=== PATIENT | female | born 1940 | race Two or more races ===

== ENCOUNTER 2024-10-31 21:02 | Inpatient (IN) | payer OTHER ==
[~2024-10-31] VITALS: Ht 160 cm; Wt 49.0 kg
--- NOTE | 2024-10-31 21:26 | ED.PDOC ---
HPI Comments 84-year-old female who came to ER for chest pains. Patient does have history of hypertension but is not taking any medications for it. States for the past 2 days she has been left-sided chest pains, throbbing, radiating to her back, associated with dizziness, weakness, and difficulty sleeping. Noted also that her blood pressure was elevated, SBP >200 at home. Denies any shortness of breath, nausea or vomiting. Upon arrival to the ER blood pressure was 215/98 mm Hg Chief Complaint: Chest Pain Time Seen by MD: 21:26 Reviewed Notes: Nurses Notes Allergies: Coded Allergies: NO KNOWN ALLERGIES (Unverified , 10/31/24) Information Source: Patient Mode of Arrival: Ambulatory Severity: Moderate Timing: Days Duration: Intermittent Prehospital treatment: None Location: Chest (L) Radiation: Back Quality: Other (Throbbing) Onset: With Light Exertion Cardiac Risk Factors: HTN PE Risk Factors: None History of: None Modifying Factors: Nothing Associated Signs and Symptoms: Back Pain Past Medical History PAST MEDICAL HISTORY: HTN Surgical History: Denies all surgeries 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 Family History Family History: Reviewed,noncontributory to illness Social History Smoker: Non-Smoker Alcohol: Denies ETOH Use Drugs: Denies Drug Use Lives In: Home Constitutional: reports: fatigue, weakness; denies: chills, diaphoresis, fever, malaise, sweats, others EENTM: denies: blurred vision, double vision, ear bleeding, ear discharge, ear drainage, ear pain, ear ringing, eye pain, eye redness, hearing loss, mouth pain, mouth swelling, nasal discharge, nose bleeding, nose congestion, nose pain, photophobia, tearing, throat pain, throat swelling, voice changes, others Respiratory: denies: cough, hemoptysis, orthopnea, SOB at rest, shortness of breath, SOB with excertion, stridor, wheezing, others Cardiovascular: reports: chest pain, dizzy spells; denies: diaphoresis, Dyspnea on exertion, edema, irregular heart beat, left arm pain, lightheadedness, palpitations, PND, syncope, others Gastrointestinal: denies: abdomen distended, abdominal pain, blood streaked bowels, constipated, diarrhea, dysphagia, difficulty swallowing, hematemesis, melena, nausea, poor appetite, poor fluid intake, rectal bleeding, rectal pain, vomiting, others Genitourinary: denies: abnormal vagina bleeding, burning, dyspareunia, dysuria, flank pain, frequency, hematuria, incontinence, pain, , vagina discharge, urgency, others Neurological: denies: dizziness, fainting, headache, left sided numbness, left sided weakness, numbness, paresthesia, pre-existing deficit, right sided numbness, right sided weakness, seizure, speech problems, tingling, tremors, weakness, others Musculoskeletal: denies: back pain, gout, joint pain, joint swelling, muscle pain, muscle stiffness, neck pain, others Integumetry: denies: bruises, change in color, change in hair/nails, dryness, laceration, lesions, lumps, rash, wounds, others Allergic/Immunocompromised: denies: Difficulty Healing, Frequent Infections, Hives, Itching, others Hematologic/Lymphatic: denies: anemia, blood clots, easy bleeding, easy bruising, swollen glands, others Endocrine: denies: excessive hunger, excessive sweating, excessive thirst, excessive urination, flushing, intolerance to cold, intolerance to heat, unexplained weight gain, unexplained weight loss, others Psychiatric: denies: anxiety, bipolar disorder, depression, hopeless, panic disorder, schizophrenia, sleepless, suicidal, others Physical Exam General Appearance: No Apparent Distress, Normal HEENT: Normal ENT Inspection, Pharynx Normal, TMs Normal Neck: Full Range of Motion, Non-Tender, Normal, Normal Inspection Respiratory: Chest Non-Tender, Lungs Clear, No Accessory Muscle Use, No Respiratory Distress, Normal Breath Sounds Cardiovascular: No Edema, No JVD, No Murmur, No Gallop, Normal Peripheral Pulses, Regular Rate/Rhythm Breast Exam: Deferred Gastrointestinal: No Organomegaly, Non Tender, No Pulsatile Mass, Normal Bowel Sounds, Soft Genitalia: Deferred Pelvic: Deferred Rectal: Deferred Extremities: No calf tenderness, Normal capillary refill, Normal inspection, Normal range of motion, Non-tender, No pedal edema Musculoskeletal : Apperance: Normal 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 Was a procedure done?: No CP Differential Dx Differential Diagnosis: Angina, Anxiety / Panic Attack Differential Diagnosis: HTN Essential, HTN Accelerated Differential Diagnosis: Angina, Chest Wall Pain, Costochondritis, Esophageal reflux/spasm, Gastritis, Myocardial Infarction, Pneumonia X-Ray, Labs, Meds, VS Vital Signs Date Time Temp Pulse Resp B/P (MAP) Pulse Ox O2 Delivery O2 Flow Rate FiO2 10/31/24 22:19 75 10/31/24 21:51 154/95 (114) 10/31/24 21:50 154/95 10/31/24 21:10 81 10/31/24 21:07 98.0 81 16 198/141 (160) 97 Lab Test 10/31/24 22:12 10/31/24 21:17 Range/Units Troponin I High Sensitivity Pending 23 </=34 ng/L White Blood Count 6.9 4.4-10.8 10^3/uL Red Blood Count 4.51 4.0-5.20 10^6/uL Hemoglobin 13.9 12.2-16.2 g/dL Hematocrit 41.1 36.0-46.0 % Mean Corpuscular Volume 91.1 80.0-100.0 fL Mean Corpuscular Hemoglobin 30.9 28.0-32.0 pg Mean Corpuscular Hemoglobin Concent 33.9 32.0-36.0 g/dL Red Cell Distribution Width 13.5 11.8-14.3 % Platelet Count 331 140-450 10^3/uL Mean Platelet Volume 7.7 6.9-10.8 fL Neutrophils (%) (Auto) 68.7 37.0-80.0 % Lymphocytes (%) (Auto) 18.3 10.0-50.0 % Monocytes (%) (Auto) 9.2 0.0-12.0 % Eosinophils (%) (Auto) 2.9 0.0-7.0 % Basophils (%) (Auto) 0.9 0.0-2.0 % Neutrophils # (Auto) 4.7 1.6-8.6 10 ^3/uL Lymphocytes # (Auto) 1.3 0.4-5.4 10 ^3/uL Monocytes # (Auto) 0.6 0-1.3 10 ^3/uL Eosinophils # (Auto) 0.2 0-0.8 10 ^3/uL Basophils # (Auto) 0.1 0-0.2 10 ^3/uL Nucleated Red Blood Cells 0.0 % Prothrombin Time 10.8 9.3-11.8 sec Prothrombin Time INR 1.02 0.9-1.15 Activated Partial Thromboplast Time 27.2 24.5-34.5 SEC D-Dimer, Quantitative 0.24 0.0-0.49 mg/L FEU Sodium Level 137 136-145 mmol/L Potassium Level 4.0 3.5-5.1 mmol/L Chloride Level 104 98-107 mmol/L Carbon Dioxide Level 26 20-31 mmol/L Anion Gap 7 5-15 Blood Urea Nitrogen 18 9-23 mg/dL Creatinine 0.87 0.550-1.02 mg/dL Glomerular Filtration Rate Calc 65 >90 mL/min BUN/Creatinine Ratio 20.7 H 10.0-20.0 Serum Glucose 115 H 74-106 mg/dL Calcium Level 10.5 H 8.7-10.4 mg/dL Total Bilirubin 1.3 H 0.2-1.0 mg/dL Aspartate Amino Transferase (AST) 25 13-40 U/L Alanine Aminotransferase (ALT) 21 7-40 U/L Alkaline Phosphatase 71 46-116 U/L B-Type Natriuretic Peptide 63.21 0-100 pg/mL Total Protein 7.5 5.7-8.2 g/dL Albumin 4.8 3.2-4.8 g/dL Time of 1ST Reevaluation: 21:23 Reevaluation 1ST: Unchanged Time of 2ND Reevaluation: 22:50 Reevaluation 2ND: Unchanged Patient Education/Counseling: Diagnosis, Treatment Family Education/Counseling: No Family Present Departure 1 Departure Time of Disposition: 22:50 Impression: Primary Impression: Unstable angina Additional Impression: Uncontrolled hypertension Disposition: 09 ADMITTED INPATIENT Admit to: Tele Condition: Guarded Critical Care Note Critical Care Time?: Yes (35 min-critical care time only) Critical care comment: Hypertensive urgency Total critical care time: Approximately 36 minutes Due to a high probability of clinically significant, life threatening deterioration, the patient required my highest level of preparedness to intervene emergently and I personally spent this critical care time directly and personally managing the patient. This critical care time included obtaining a history; examining the patient; pulse oximetry; ordering and review of studies; arranging urgent treatment with development of a management plan; evaluation of patient's response to treatment; frequent reassessment; and, discussions with other providers. This critical care time was performed to assess and manage the high probability of imminent, life-threatening deterioration that could result in multi-organ failure. It was exclusive of separately billable procedures and treating other patients. Stability Stability form required: No Heart Score Heart Score: Heart Score Response (Comments) Value History Moderate Suspicious 1 EKG Repolarization Disturb 1 Age >65 2 Risk Factors 1 or 2 risk factors 1 Troponin Normal limit 0 Total [address] personally scrib[address] EL MD ([email or web address]) on 10/31/24 at 21:26. Electronically submitted by David Hazel ([email or web address]). CT EL MD Oct 31, 2024 21:26
[2024-10-31 21:36] LABS: Basophils # (auto) 0.1 10 ^3/uL (0-0.2); Basophils % (auto) 0.9 % (0.0-2.0); Eosinophils # (auto) 0.2 10 ^3/uL (0-0.8); Eosinophils % (auto) 2.9 % (0.0-7.0); Hematocrit 41.1 % (36.0-46.0); Hemoglobin 13.9 g/dL (12.2-16.2); Lymphocytes # (auto) 1.3 10 ^3/uL (0.4-5.4); Lymphocytes % (auto) 18.3 % (10.0-50.0); Mean Corpuscular Hemoglobin 30.9 pg (28.0-32.0); Mean Corpuscular Hgb Conc. 33.9 g/dL (32.0-36.0); Mean Corpuscular Volume 91.1 fL (80.0-100.0); Monocytes # (auto) 0.6 10 ^3/uL (0-1.3); Monocytes % (auto) 9.2 % (0.0-12.0); Neutrophils # (auto) 4.7 10 ^3/uL (1.6-8.6); Neutrophils % (auto) 68.7 % (37.0-80.0); Platelet Count (auto) 331 10^3/uL (140-450); Red Blood Cells 4.51 10^6/uL (4.0-5.20); Red Cell Distribution Width 13.5 % (11.8-14.3); White Blood Cell 6.9 10^3/uL (4.4-10.8)
--- NOTE | 2024-10-31 21:41 | DVH ---
CHEST RADIOGRAPH Indication: chest pain Technique: Single frontal view of the chest was obtained Comparison: None FINDINGS: Lines and Tubes: None Lungs: Clear Pleura: No effusion. No pneumothorax. Cardiomediastinal contours: Unremarkable Bones: Unremarkable IMPRESSION: 1. Clear lungs.
[2024-10-31] MEDS: cloNIDine HCL 0.1 MG TAB PO ONE (21:50)
[2024-10-31 21:52] LABS: Alanine Aminotransferase 21 U/L (7-40); Alkaline Phosphatase 71 U/L (46-116); Anion Gap 7 (5-15); Aspartate Aminotransferase 25 U/L (13-40); BUN/Creatinine Ratio 20.7 (10.0-20.0); Blood Urea Nitrogen 18 mg/dL (9-23); Carbon Dioxide 26 mmol/L (20-31); Chloride 104 mmol/L (98-107); Sodium 137 mmol/L (136-145); Total Protein 7.5 g/dL (5.7-8.2)
[2024-10-31 22:01] LABS: Albumin 4.8 g/dL (3.2-4.8); Bilirubin, Total 1.3 mg/dL (0.2-1.0); Calcium 10.5 mg/dL (8.7-10.4); Glucose 115 mg/dL (74-106)
[2024-10-31 22:12] LABS: INR 1.02 (0.9-1.15); Partial Thromboplastin Time 27.2 SEC (24.5-34.5); Prothrombin Time 10.8 sec (9.3-11.8)
[2024-10-31] MEDS ORDERED: NITROGLYCERIN 0.4 MG SL TAB SL PRN (23:30)
[2024-10-31] MEDS ORDERED: ACETAMINOPHEN 325 MG TAB PO PRN (23:30)
--- NOTE | 2024-10-31 23:31 | DVHHPRES ---
History of Present Illness Resident Creating Document: SABINA HIGH RESIDENT History of Present Illness This is 84-year-old female with past medical history of hypertension presented to the ED with a chief complaint of chest pain and elevated blood pressure for 2 days prior to this admission. The patient she has a history of hypertension but but was not taking any medication before. She states the chest pain started 2 days ago which was sharp stabbing pain ,8/10 , radiate to the back and also left shoulder without any aggravating or relieving factors and associated with diz ziness, weakness and difficulty sleeping. She also mentioned today her home blood pressure SBP > 200 prompted her this visit . On admission her blood pressure was 194/141. The patient denies headache, blurry vision, neck pain, nausea, diaphoresis, abdominal pain change in bowel and bladder habit. Past Medical History HTN Past Surgical History: None Family History: None Smoke: No ALCOHOL: none Drugs: None Lives: Alone Review of Systems Constitutional: Yes: Weakness; No: Fever, Chills, Sweats, Malaise, Other Eyes: No: Pain, Vision change, Conjunctivae inflammation, Eyelid inflammation, Other, Redness ENT: No: Ear pain, Ear discharge, Nose pain, Nose discharge, Nose congestion, Mouth pain, Mouth swelling, Throat pain, Throat swelling, Other Respiratory: No: Cough, Dry, Shortness of breath, SOB with excertion, Wheezing, Hemoptysis, Pleuritic Pain, Sputum, Wheezing, Other Cardiovascular: Chest Pain, Lt Headedness; No: Palpitations, Orthopnea, Parox ysmal Noc. Dyspnea, Edema, Other Gastrointestinal: No: Nausea, Vomiting, Abdominal Pain, Diarrhea, Constipation, Melena, Hematochezia, Other Genitourinary: No Dysuria, No Frequency, No Incontinence, No Hematuria, No Retention, No Other Musculoskeletal: No: other, neck pain, shoulder pain, arm pain, back pain, hand pain, leg pain, foot pain Skin: No: Rash, Lesions, Jaundice, Bruising, Other Neurological: No: Weakness, Numbness, Incoordination, Change in speech, Confusion, Seizures, Other Allergies: Coded Allergies: NO KNOWN ALLERGIES (Unverified , 10/31/24) Medications Current Medications Medications Dose Ordered Sig/Gene Route Start Time Stop Time Status Last Admin Dose Admin Sodium Chloride 10 ml Q8HR IV 11/01/24 06:00 Ondansetron HCl 4 mg Q4HP PRN IV 10/31/24 23:30 Enoxaparin Sodium 40 mg DAILY SC 11/01/24 10:00 Acetaminophen 650 mg Q6HP PRN PO 10/31/24 23:30 Nitroglycerin 0.4 mg Q5MINP PRN SL 10/31/24 23:30 Morphine Sulfate 2 mg Q30M PRN IV 10/31/24 23:30 Exam Vital Signs Vital Signs Date Time Temp Pulse Resp B/P (MAP) Pulse Ox O2 Delivery O2 Flow Rate FiO2 10/31/24 22:58 141/91 (108) 10/31/24 22:55 96 75 16 10/31/24 21:07 98.0 Exam Physical examination: General Appearance: Alert, Oriented X3, Cooperative, No acute distress HEENT: Atraumatic, PERRLA, EOMI, Mucous membrane moist/pink Respiratory: Clear to auscultation, Normal air movement Cardiovascular: Regular rate, Normal S1, Normal S2, No murmurs, no chest wall tenderness Abdominal: Normal bowel sounds, Soft, No tenderness, No hepatospenomegaly, No masses Extremities: No clubbing, No cyanosis, No edema, Normal pulses, No tenderness/swelling Skin: No rashes, No breakdown, No significant lesion Neuro: Normal gait, Normal speech, Strength at 5/5 X4 ext, Normal tone, Sensation intact, grossly intact cranial nerves. Psych/Mental Status: Mental status NL, Mood NL Labs/Xrays Labs Test 10/31/24 22:12 10/31/24 21:17 Range/Units Troponin I High Sensitivity 25 </=34 ng/L White Blood Count 6.9 4.4-10.8 10^3/uL Red Blood Count 4.51 4.0-5.20 10^6/uL Hemoglobin 13.9 12.2-16.2 g/dL Hematocrit 41.1 36.0-46.0 % Mean Corpuscular Volume 91.1 80.0-100.0 fL Mean Corpuscular Hemoglobin 30.9 28.0-32.0 pg Mean Corpuscular Hemoglobin Concent 33.9 32.0-36.0 g/dL Red Cell Distribution Width 13.5 11.8-14.3 % Platelet Count 331 140-450 10^3/uL Mean Platelet Volume 7.7 6.9-10.8 fL Neutrophils (%) (Auto) 68.7 37.0-80.0 % Lymphocytes (%) (Auto) 18.3 10.0-50.0 % Monocytes (%) (Auto) 9.2 0.0-12.0 % Eosinophils (%) (Auto) 2.9 0.0-7.0 % Basophils (%) (Auto) 0.9 0.0-2.0 % Neutrophils # (Auto) 4.7 1.6-8.6 10 ^3/uL Lymphocytes # (Auto) 1.3 0.4-5.4 10 ^3/uL Monocytes # (Auto) 0.6 0-1.3 10 ^3/uL Eosinophils # (Auto) 0.2 0-0.8 10 ^3/uL Basophils # (Auto) 0.1 0-0.2 10 ^3/uL Nucleated Red Blood Cells 0.0 % Prothrombin Time 10.8 9.3-11.8 sec Prothrombin Time INR 1.02 0.9-1.15 Activated Partial Thromboplast Time 27.2 24.5-34.5 SEC D-Dimer, Quantitative 0.24 0.0-0.49 mg/L FEU Sodium Level 137 136-145 mmol/L Potassium Level 4.0 3.5-5.1 mmol/L Chloride Level 104 98-107 mmol/L Carbon Dioxide Level 26 20-31 mmol/L Anion Gap 7 5-15 Blood Urea Nitrogen 18 9-23 mg/dL Creatinine 0.87 0.550-1.02 mg/dL Glomerular Filtration Rate Calc 65 >90 mL/min BUN/Creatinine Ratio 20.7 H 10.0-20.0 Serum Glucose 115 H 74-106 mg/dL Calcium Level 10.5 H 8.7-10.4 mg/dL Total Bilirubin 1.3 H 0.2-1.0 mg/dL Aspartate Amino Transferase (AST) 25 13-40 U/L Alanine Aminotransferase (ALT) 21 7-40 U/L Alkaline Phosphatase 71 46-116 U/L B-Type Natriuretic Peptide 63.21 0-100 pg/mL Total Protein 7.5 5.7-8.2 g/dL Albumin 4.8 3.2-4.8 g/dL Assessment/Plan Assessment/Plan Assessment and plan: # Chest pain rule out ACS - EKG and troponins were unremarkable - Aspirin 81 mg daily - Ordered echo - Consulted Cardiology. # Hypertensive urgency - On admission blood pressure was 194/141 - Patient was given clonidine 0.2 mg p.o. once. - IV hydralazine 10 mg q.6 p.r.n. - Monitor Blood pressure closely. # Hyperbilirubinemia without transaminitis - Monitor CMP. Goal of care discussed with the patient for more than 17 minutes full code Plan of treatment discussed with Dr. Villegas Plan discussed with: Patient, Other My Orders Orders - SABINA HIGH Procedure Category Date Status Time Admit ADMIT 10/31/24 Transmitted 23:20 Code Status CODE 10/31/24 Transmitted 23:20 2 Gm Sodium Diet DIET 11/01/24 Transmitted Breakfast Sodium Chloride Lock PHA 11/01/24 In Process (Saline Lock Ns) 06:00 Ondansetron Hcl PHA 10/31/24 In Process (Zofran) 23:30 Enoxaparin Sodium PHA 11/01/24 In Process (Lovenox) 10:00 Fall Risk Precautions LORI 10/31/[address] 23:20 Complete Blood Count LAB 11/01/24 Verified 04:00 Comprehensive LAB 11/01/24 Verified Metabolic Panel 04:00 Acetaminophen Tablet PHA 10/31/24 In Process (Tylenol Tablet) 23:30 Nitroglycerin PHA 10/31/24 In Process Sublingual (Ntrostat 23:30 Morphine Sulfate PHA 10/31/24 In Process Injection 23:30 Oxygen By Nasal RT 10/31/24 Transmitted Cannula 23:20 Stat Ekg For Chest [facility] 10/31/24 In Process Pain 23:20 Notify Md Of Changes [facility] 10/31/24 In Process From Base 23:20 Mental Health Associate For [facility] 10/31/24 In Process 24 Hours 23:20 Emergency Dysrhythmia [facility] 10/31/24 In Process Protocol 23:20 Rhythm Strips Once [facility] 10/31/24 In Process Every Shift 23:20 Echo 2d Mode Cardiac US 10/31/24 Logged DOP 23:22 Date of Service: Oct 31, 2024 Billing Provider: MIMI VILLEGAS MD Common Visit Codes: [id number] INP/OBS CARE (HIGH) Secondary Visit Codes: 70180-[id number] CARE PLAN 30 MINUTES SABINA HIGH Oct 31, 2024 23:31 MIMI VILLEGAS MD Nov 01, 2024 21:05
[2024-10-31] MEDS: ASPirin-EC 81 mg tab PO ONE (23:38)
[2024-10-31 23:41] VITALS: PULSE 75; RESP 16; O2SAT 96
[2024-10-31] MEDS: CLOPIDOGREL BISULFATE 75 MG TAB PO ONE (23:45)
[2024-10-31] MEDS: ASPirin-EC 81 mg tab PO SCH (23:45)
[2024-11-01] VITALS (8 sets, daily range): BP systolic 116–155; BP diastolic 53–71; PULSE 68–89; RESP 16–18; TEMP 97.2–97.9; O2SAT 93–99
[2024-11-01] MEDS: hydrALAZINE HCL 20 MG/ML VL IV PRN (02:18)
[2024-11-01] MEDS: ONDANSETRON HCL 4 MG/2 ML VIAL IV PRN (02:48)
[2024-11-01] MEDS: MORPHINE SULFATE INJ 2 MG/ml SYRG IV PRN (02:48)
[2024-11-01] MEDS: SODIUM CHLOR 0.9% PF (SALINE LOCK) 10ML VIAL/SYR IV SCH (05:56)
[2024-11-01 06:23] LABS: Basophils # (auto) 0 10 ^3/uL (0-0.2); Basophils % (auto) 0.4 % (0.0-2.0); Eosinophils # (auto) 0.1 10 ^3/uL (0-0.8); Eosinophils % (auto) 1.6 % (0.0-7.0); Hematocrit 40.1 % (36.0-46.0); Hemoglobin 13.7 g/dL (12.2-16.2); Lymphocytes # (auto) 0.9 10 ^3/uL (0.4-5.4); Lymphocytes % (auto) 10.3 % (10.0-50.0); Mean Corpuscular Hemoglobin 31.9 pg (28.0-32.0); Mean Corpuscular Hgb Conc. 34.2 g/dL (32.0-36.0); Mean Corpuscular Volume 93.4 fL (80.0-100.0); Monocytes # (auto) 0.8 10 ^3/uL (0-1.3); Monocytes % (auto) 8.8 % (0.0-12.0); Neutrophils # (auto) 6.8 10 ^3/uL (1.6-8.6); Neutrophils % (auto) 78.9 % (37.0-80.0); Platelet Count (auto) 282 10^3/uL (140-450); Red Cell Distribution Width 13.5 % (11.8-14.3); White Blood Cell 8.6 10^3/uL (4.4-10.8)
[2024-11-01 06:33] LABS: Alanine Aminotransferase 17 U/L (7-40); Alkaline Phosphatase 64 U/L (46-116); Anion Gap 9 (5-15); BUN/Creatinine Ratio 16.9 (10.0-20.0); Blood Urea Nitrogen 13 mg/dL (9-23); Chloride 104 mmol/L (98-107); Potassium 3.9 mmol/L (3.5-5.1); Triglycerides 74 mg/dL (< 150)
[2024-11-01 06:34] LABS: Aspartate Aminotransferase 23 U/L (13-40)
[2024-11-01 06:35] LABS: Albumin 4.3 g/dL (3.2-4.8); Cholesterol 181 mg/dL (< 200); HDL Cholesterol 60 mg/dL (40-59); Total Protein 6.9 g/dL (5.7-8.2)
[2024-11-01 06:39] LABS: Carbon Dioxide 22 mmol/L (20-31); Glucose 108 mg/dL (74-106); Sodium 135 mmol/L (136-145)
[2024-11-01 06:40] LABS: Bilirubin, Total 1.5 mg/dL (0.2-1.0); LDL Cholesterol 106 mg/dL (< 100)
--- NOTE | 2024-11-01 06:40 | ECG ---
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
--- NOTE | 2024-11-01 06:40 | ECG ---
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
[2024-11-01] MEDS: ENOXAPARIN SOD 40 MG/0.4 ML SYRINGE SC SCH (08:50)
[2024-11-01] MEDS ORDERED: ASPirin-EC 81 mg tab PO SCH (10:00)
[2024-11-01 10:44] LABS: Urine Bacteria None Seen /hpf (None Seen)
[2024-11-01 10:50] LABS: Urine Blood Negative /uL (Negative); Urine Clarity Clear (Clear); Urine Color Light-Yellow (Yellow); Urine Mucus FEW (None Seen); Urine Protein, UAD TRACE (Negative); Urine Specific Gravity 1.016 (1.001-1.035); Urine Urobilinogen Normal (Negative); Urine WBC 1 /hpf (0 - 5)
--- NOTE | 2024-11-01 12:11 | DVHCONRES ---
Date Seen: Nov 01, 2024 Resident Creating Document: YING PUENTES RESIDENT Referring Physician Dr Hinojosa Reason for Consultation Chest pain History of Present Illness Asha Rangel is a 84-year-old female with a PMH of HTN presented to the ED with the chief complaints of high blood pressure and intermittent chest pain for 2 days prior to admission. Patient reported history of hypertension but she is managing with dietary changes but not on any medications. Whenever she had high blood pressure she has been experiencing occasional chest pain which is sharp or stabbing 8/10 radiates to back and left shoulder but no aggravating or relieving factors. Patient reported she is feeling occasional dizziness and difficulty sleeping. On my assessment patient denies fever, nause a, vomiting, diaphoresis, dizziness, headache, blurry vision, and other acute associated symptoms Past Medical History HTN Past Surgical History Denies Family History Reviewed, noncontributory Social History Lives with family. Denies smoking, alcohol and other drug abuse Allergies: Coded Allergies: NO KNOWN ALLERGIES (Unverified , 10/31/24) Home Meds No Active Prescriptions or Reported Meds Current Medications Current Medications Medications (Trade) Dose Ordered Sig/Gene Route PRN Reason Start Time Stop Time Status Last Admin Sodium Chloride (Saline Lock Ns) 10 ml Q8HR IV 11/01/24 06:00 11/01/24 05:56 Ondansetron HCl (Zofran) 4 mg Q4HP PRN IV NAUSEA / VOMITING 10/31/24 23:30 11/01/24 02:48 Enoxaparin Sodium (Lovenox) 40 mg DAILY SC 11/01/24 10:00 11/01/24 08:50 Acetaminophen (Tylenol Tablet) 650 mg Q6HP PRN PO PAIN SCALE 1-3 OR TEMP>100.4 10/31/24 23:30 Nitroglycerin (Ntrostat Sublingual) 0.4 mg Q5MINP PRN SL FOR CHEST PAIN 10/31/24 23:30 Morphine Sulfate 2 mg Q30M PRN IV FOR CHEST PAIN 10/31/24 23:30 11/01/24 05:59 Aspirin (Ecotrin Enteric Coated Tablet) 81 mg DAILY PO 11/01/24 10:00 10/31/24 23:41 DC Aspirin (Ecotrin Enteric Coated Tablet) 81 mg DAILY PO 10/31/24 23:45 11/01/24 08:50 Hydralazine HCl (Apresoline Injection) 10 mg Q6HP PRN IV SBP>150 11/01/24 02:15 11/01/24 02:18 Review of Systems Seen and examined at the bedside. Patient reports improvement in her symptoms since admission, reported no new complaints. Vital Signs Vital Signs Date Time Temp Pulse Resp B/P (MAP) Pulse Ox O2 Delivery O2 Flow Rate FiO2 11/01/24 09:45 97.8 69 16 116/56 (76) 98 97.8 11/01/24 08:00 Room Air* 0 21 Physical Exam Pt is lying on bed General Appearance: Alert, Oriented X3, Cooperative, mild distress HEENT: Atraumatic, Mucous membranes moist/pink Respiratory: Clear to auscultation, Normal air movement, No added sounds Cardiovascular: Regular rate, Normal S1, Normal S2, No murmurs Abdominal: Active bowel sounds, Soft, no distention, no tenderness Extremities: No edema, Normal pulses, No tenderness/swelling Skin: No Significant rash Neuro: Normal speech, sensorimotor deficits none Psych/Mental Status: Mental status NL, Mood NL Nurse was there as vidalerone during examination Labs/Diagnostic Data Labs Test 11/01/24 09:00 11/01/24 04:43 11/01/24 00:07 10/31/24 21:17 Range/Units Urine Color Light-yellow Yellow Urine Clarity Clear Clear Urine pH 7.0 5.0-9.0 Urine Specific [place] 1.016 1.001-1.035 Urine Protein Trace H Negative Urine Ketones Trace Negative Urine Blood Negative Negative /uL Urine Nitrite Negative Negative Urine Bilirubin Negative Negative Urine Urobilinogen Normal Negative mg/dL Urine Leukocyte Esterase Negative Negative /uL Urine RBC 4 0 - 4 /hpf Urine WBC 1 0 - 5 /hpf Urine Squamous Epithelial Cells None seen <5 /hpf Urine Bacteria None seen None Seen /hpf Urine Mucus Few None Seen Urine Glucose Normal Normal mg/dL White Blood Count 8.6 4.4-10.8 10^3/uL Red Blood Count 4.30 4.0-5.20 10^6/uL Hemoglobin 13.7 12.2-16.2 g/dL Hematocrit 40.1 36.0-46.0 % Mean Corpuscular Volume 93.4 80.0-100.0 fL Mean Corpuscular Hemoglobin 31.9 28.0-32.0 pg Mean Corpuscular Hemoglobin Concent 34.2 32.0-36.0 g/dL Red Cell Distribution Width 13.5 11.8-14.3 % Platelet Count 282 140-450 10^3/uL Mean Platelet Volume 8.1 6.9-10.8 fL Neutrophils (%) (Auto) 78.9 37.0-80.0 % Lymphocytes (%) (Auto) 10.3 10.0-50.0 % Monocytes (%) (Auto) 8.8 0.0-12.0 % Eosinophils (%) (Auto) 1.6 0.0-7.0 % Basophils (%) (Auto) 0.4 0.0-2.0 % Neutrophils # (Auto) 6.8 1.6-8.6 10 ^3/uL Lymphocytes # (Auto) 0.9 0.4-5.4 10 ^3/uL Monocytes # (Auto) 0.8 0-1.3 10 ^3/uL Eosinophils # (Auto) 0.1 0-0.8 10 ^3/uL Basophils # (Auto) 0 0-0.2 10 ^3/uL Nucleated Red Blood Cells 0.0 % Sodium Level 135 L 136-145 mmol/L Potassium Level 3.9 3.5-5.1 mmol/L Chloride Level 104 98-107 mmol/L Carbon Dioxide Level 22 20-31 mmol/L Anion Gap 9 5-15 Blood Urea Nitrogen 13 9-23 mg/dL Creatinine 0.77 0.550-1.02 mg/dL Glomerular Filtration Rate Calc 75 >90 mL/min BUN/Creatinine Ratio 16.9 10.0-20.0 Serum Glucose 108 H 74-106 mg/dL Hemoglobin A1c 5.6 <5.7 % A1C Calcium Level 10.0 8.7-10.4 mg/dL Total Bilirubin 1.5 H 0.2-1.0 mg/dL Aspartate Amino Transferase (AST) 23 13-40 U/L Alanine Aminotransferase (ALT) 17 7-40 U/L Alkaline Phosphatase 64 46-116 U/L Total Protein 6.9 5.7-8.2 g/dL Albumin 4.3 3.2-4.8 g/dL Triglycerides Level 74 < 150 mg/dL Cholesterol Level 181 < 200 mg/dL LDL Cholesterol 106 H < 100 mg/dL HDL Cholesterol 60 H 40-59 mg/dL Troponin I High Sensitivity 25 </=34 ng/L Prothrombin Time 10.8 9.3-11.8 sec Prothrombin Time INR 1.02 0.9-1.15 Activated Partial Thromboplast Time 27.2 24.5-34.5 SEC D-Dimer, Quantitative 0.24 0.0-0.49 mg/L FEU Magnesium Level 2.3 1.6-2.6 mg/dL B-Type Natriuretic Peptide 63.21 0-100 pg/mL Thyroid Stimulating Hormone (TSH) 1.71 0.55-4.78 uIU/mL Assessment Chest pain likely due to hypertensive urgency Hypertensive urgency Hyperbilirubinemia Plan/Recommendation We will continue with the following plan/recommendations (Dr. Reyes): Echocardiogram to evaluate cardiac function Started on nifedipine 60 mg, Coreg 12.5 Counseled regarding lifestyle modifications including diet and exercise,to avoid high salt foods Patient was advised about medication compliance Case discussed with Dr Gonzalez, patient and RN. We are signing off, Thank you for allowing us to care for this patient. Please call with any questions or concerns. Plan discussed with: Patient Visit Coding Cardiology RES Date of Service: Nov 01, 2024 Billing Provider: DAVID GONZALEZ MD Cardiology Common Codes: [id number] INP/OBS CARE (Mod) YING PUENTES RESIDENT Nov 01, 2024 12:11
--- NOTE | 2024-11-01 12:30 | DVH ---
US OF THE left BREAST INDICATION: LEFT BREAST PAIN TECHNIQUE: Targeted left breast ultrasound was performed. COMPARISON: Prior exam dated: None FINDINGS: No solid or suspicious masses. No areas of architectural distortion. No malignant adenopathy. No dominant cysts are present. IMPRESSION: There is no sonographic evidence for malignancy. Recommend bilateral mammogram for further evaluation . ACR Bi Rads Category:Category 1
[2024-11-01] MEDS ORDERED: NIFE1TAB31 PO (12:42)
[2024-11-01] MEDS ORDERED: CARV-216 PO (12:42)
[2024-11-01] MEDS ORDERED: ASPI-543 PO (12:42)
[2024-11-01] MEDS ORDERED: ATOR20TA PO (12:43)
--- NOTE | 2024-11-01 12:46 | DVHDS2 ---
Discharge Summary Date of Admission Oct 31, 2024 at 23:20 Date of Discharge: Nov 01, 2024 Labs/Diagnostic Data: Laboratory Results Test 11/01/24 09:00 11/01/24 04:43 11/01/24 00:07 10/31/24 21:17 Urine Color Light-yellow (Yellow) Urine Clarity Clear (Clear) Urine pH 7.0 (5.0-9.0) Urine Specific [place] 1.016 (1.001-1.035) Urine Protein Trace (Negative) Urine Ketones Trace (Negative) Urine Blood Negative /uL (Negative) Urine Nitrite Negative (Negative) Urine Bilirubin Negative (Negative) Urine Urobilinogen Normal mg/dL (Negative) Urine Leukocyte Esterase Negative /uL (Negative) Urine RBC 4 /hpf (0 - 4) Urine WBC 1 /hpf (0 - 5) Urine Squamous Epithelial Cells None seen /hpf (<5) Urine Bacteria None seen /hpf (None Seen) Urine Mucus Few (None Seen) Urine Glucose Normal mg/dL (Normal) White Blood Count 8.6 10^3/uL (4.4-10.8) Red Blood Count 4.30 10^6/uL (4.0-5.20) Hemoglobin 13.7 g/dL (12.2-16.2) Hematocrit 40.1 % (36.0-46.0) Mean Corpuscular Volume 93.4 fL (80.0-100.0) Mean Corpuscular Hemoglobin 31.9 pg (28.0-32.0) Mean Corpuscular Hemoglobin Concent 34.2 g/dL (32.0-36.0) Red Cell Distribution Width 13.5 % (11.8-14.3) Platelet Count 282 10^3/uL (140-450) Mean Platelet Volume 8.1 fL (6.9-10.8) Neutrophils (%) (Auto) 78.9 % (37.0-80.0) Lymphocytes (%) (Auto) 10.3 % (10.0-50.0) Monocytes (%) (Auto) 8.8 % (0.0-12.0) Eosinophils (%) (Auto) 1.6 % (0.0-7.0) Basophils (%) (Auto) 0.4 % (0.0-2.0) Neutrophils # (Auto) 6.8 10 ^3/uL (1.6-8.6) Lymphocytes # (Auto) 0.9 10 ^3/uL (0.4-5.4) Monocytes # (Auto) 0.8 10 ^3/uL (0-1.3) Eosinophils # (Auto) 0.1 10 ^3/uL (0-0.8) Basophils # (Auto) 0 10 ^3/uL (0-0.2) Nucleated Red Blood Cells 0.0 % Sodium Level 135 mmol/L (136-145) Potassium Level 3.9 mmol/L (3.5-5.1) Chloride Level 104 mmol/L (98-107) Carbon Dioxide Level 22 mmol/L (20-31) Anion Gap 9 (5-15) Blood Urea Nitrogen 13 mg/dL (9-23) Creatinine 0.77 mg/dL (0.550-1.02) Glomerular Filtration Rate Calc 75 mL/min (>90) BUN/Creatinine Ratio 16.9 (10.0-20.0) Serum Glucose 108 mg/dL (74-106) Hemoglobin A1c 5.6 % A1C (<5.7) Calcium Level 10.0 mg/dL (8.7-10.4) Total Bilirubin 1.5 mg/dL (0.2-1.0) Aspartate Amino Transferase (AST) 23 U/L (13-40) Alanine Aminotransferase (ALT) 17 U/L (7-40) Alkaline Phosphatase 64 U/L (46-116) Total Protein 6.9 g/dL (5.7-8.2) Albumin 4.3 g/dL (3.2-4.8) Triglycerides Level 74 mg/dL (< 150) Cholesterol Level 181 mg/dL (< 200) LDL Cholesterol 106 mg/dL (< 100) HDL Cholesterol 60 mg/dL (40-59) Troponin I High Sensitivity 25 ng/L (</=34) Prothrombin Time 10.8 sec (9.3-11.8) Prothrombin Time INR 1.02 (0.9-1.15) Activated Partial Thromboplast Time 27.2 SEC (24.5-34.5) D-Dimer, Quantitative 0.24 mg/L FEU (0.0-0.49) Magnesium Level 2.3 mg/dL (1.6-2.6) B-Type Natriuretic Peptide 63.21 pg/mL (0-100) Thyroid Stimulating Hormone (TSH) 1.71 uIU/mL (0.55-4.78) Other Laboratory Tests 11/01/24 04:43 Brief Hx & Hospital Course: Asha Rangel is a 84-year-old female with a PMH of HTN presented to the ED with the chief complaints of high blood pressure and intermittent chest pain for 2 days prior to admission. Patient reported history of hypertension but she is managing with dietary changes but not on any medications. Whenever she had high blood pressure she has been experiencing occasional chest pain which is sharp or stabbing 8/10 radiates to back and left shoulder but no aggravating or relieving factors. Patient reported she is feeling occasional dizziness and difficulty sleeping. Patient was seen in Cardiology consult. Needs outpatient followup for stress test. Patient reports her chest pain has resolved. Patient was started on coreg, nifedipine, ASA, and lipitor. Troponins have been negative. Chest pain resolved after BP improved. Patient needs outpatient mammogram Condition at Discharge: Stable Final Diagnosis/Problems List Chest Pain Hypertensive Urgency Discharge Disposition: Home Discharge Instruct/Medications Diet: Cardiac 2g Na,low cholest Activity: Light activity Follow Up/Referral: [facility] Medications: see [facility] Discharge Statement: "Patient was advised to return to the ER or call 911 if any headaches, dizziness, shortness of breath, chest pain, abdominal pain, bleeding, fevers, or worsening of medical condition. Patient was counseled about treatment plan, medications, possible side effects, patientverbalized understanding. All questions were answered to the best of my ability. This discharge took greater then 30 minutes in planning, reviewing documentation, counseling the patient, and discussing with other team members." ASSESSMENT ASSESSMENT Assessment Date of Service: Nov 01, 2024 Billing Provider: MIMI BARBOUR MD Common Visit Codes: 16739-FBL/OBS DISCH DAY >30min MIMI BARBOUR MD Nov 01, 2024 12:46
[2024-11-01] MEDS: CARVEDILOL 12.5 MG TAB PO ONE (12:54)
[2024-11-01] MEDS: NIFEdipine ER 30 MG TAB PO ONE (12:54)
--- NOTE | 2024-11-01 13:50 | ECG ---
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
--- NOTE | 2024-11-01 20:05 | DVHSR ---
APPROVED REPORT EXAM: Two-dimensional and M-mode echocardiogram with Doppler and color Doppler. Blood Pressure: 126/56 mmHg INDICATION Chest Pain RISK FACTORS Height: 5' 3", Weight: 108 DIMENSIONS LVDd3.9 (3.8-5.7cm)LA (2D)3.0 (1.9-4.0cm)Aortic Root2.8 (2.0-3.7cm) LVDs2.3 (2.5-4.0cm)LA (MM) (1.9-4.0cm)Aortic Cusp Exc1.5 (1.5-2.0cm) EF (%) 70.0 (55-70%)Rt. Atrium2.9 (1.9-4.0cm)Asc. Aorta cm IVSd0.8 (0.7-1.1cm)RV (D) (1.8-2.4cm) PWd0.9 (0.7-1.1cm) Mitral Valve MitralMitral Stenosis E wave0.80m/sMV Mean GR.mmHg A wave1.10m/sMV Peak GR.mmHg E/A ratio0.72D MVAcm2 Aortic Valve Aortic ValveAortic Stenosis V11.20m/Mignon Mean GR.5mmHg V21.60m/Mignon Peak GR.10mmHg LVOT Diameter2.0 (1.8-2.4cm)Doppler AVA2.36cm2 AI P 1/2 Gxlw939.28ms Pulmonic Valve V20.50m/s Tricuspid Valve TR Velocity2.20m/s [id number] Conclusion LV EJECTION FRACTION OF 65% MILD LVH AND MILD LV DIASTOLIC DYSFUNCTION NORMAL RV FUNCTION NORMAL VALVES NO EFFUSION NORMAL RV FUNCTION
[2024-11-01] MEDS ORDERED: CARVEDILOL 12.5 MG TAB PO SCH (22:00)
[2024-11-02] MEDS ORDERED: NIFEdipine ER 30 MG TAB PO SCH (10:00)
== END 2024-11-01 18:05 | disposition home or self-care (01) | DRG 305 ==
LOC: ER 21:02 → TELE 23:20 → TELE-WESTW 11-01 03:30
PROVIDERS: ADMIT Internal Medicine; ATTEND Internal Medicine
DX: I16.0 Hypertensive urgency (principal); I20.0 Unstable angina; I50.32 Chronic diastolic (congestive) heart failure; E80.6 Other disorders of bilirubin metabolism
CPT/HCPCS: 36415; 71045; 76642; 80053; 80061; 81001; 83036; 83735; 83880; 84443; 84484; 85025; 85379; 85610; 85730; 93005; 93306; 99291; G0378; J2405

== ENCOUNTER → 2024-11-12 | Outpatient (CLI) | payer OTHER ==
[~2024-11-12] MED LIST: ASPI-543 PO; ATOR20TA PO; CARV-216 PO; NIFE1TAB31 PO
[2024-11-12 12:36] LABS: Alanine Aminotransferase 29 U/L (7-40); Albumin 4.3 g/dL (3.2-4.8); Alkaline Phosphatase 52 U/L (46-116); Anion Gap 7 (5-15); Aspartate Aminotransferase 20 U/L (13-40); BUN/Creatinine Ratio 18.6 (10.0-20.0); Blood Urea Nitrogen 22 mg/dL (9-23); Calcium 10.1 mg/dL (8.7-10.4); Carbon Dioxide 30 mmol/L (20-31); Chloride 101 mmol/L (98-107); Potassium 4.3 mmol/L (3.5-5.1); Sodium 138 mmol/L (136-145)
[2024-11-12 12:37] LABS: Bilirubin, Total 0.8 mg/dL (0.2-1.0); Total Protein 6.7 g/dL (5.7-8.2)
[2024-11-12 12:58] LABS: Glucose 106 mg/dL (74-106); Lipase 79 U/L (12-53)
== END | disposition home or self-care (01) ==
LOC: LAB 11:28
PROVIDERS: ATTEND Internal Medicine
DX: R10.13 Epigastric pain (principal); R11.0 Nausea
CPT/HCPCS: 36415; 80053; 83013; 83690

== ENCOUNTER 2024-11-16 07:53 | Emergency (ER) | payer OTHER ==
[~2024-11-16] VITALS: Ht 160 cm; Wt 48.9 kg
[2024-11-16 08:19] LABS: Basophils # (auto) 0.1 10 ^3/uL (0-0.2); Basophils % (auto) 0.8 % (0.0-2.0); Eosinophils # (auto) 0.2 10 ^3/uL (0-0.8); Eosinophils % (auto) 2.5 % (0.0-7.0); Hemoglobin 13.1 g/dL (12.2-16.2); Lymphocytes # (auto) 1.3 10 ^3/uL (0.4-5.4); Lymphocytes % (auto) 17.5 % (10.0-50.0); Mean Corpuscular Hemoglobin 31.4 pg (28.0-32.0); Mean Corpuscular Hgb Conc. 34.6 g/dL (32.0-36.0); Monocytes # (auto) 0.6 10 ^3/uL (0-1.3); Monocytes % (auto) 8.1 % (0.0-12.0); Neutrophils # (auto) 5.3 10 ^3/uL (1.6-8.6); Neutrophils % (auto) 71.1 % (37.0-80.0); Nucleated Red Blood Cells % 0.1 %; Platelet Count (auto) 418 10^3/uL (140-450); Red Blood Cells 4.18 10^6/uL (4.0-5.20); Red Cell Distribution Width 12.9 % (11.8-14.3); White Blood Cell 7.5 10^3/uL (4.4-10.8)
[2024-11-16 08:24] VITALS: PULSE 74; RESP 16; O2SAT 97
--- NOTE | 2024-11-16 08:25 | ED.PDOC ---
History of Present Illness(SKN HPI Comments 84 y.o female with PMH of HTN, presents to the ED for a chief complaint of left sided chest pain associated with a rash that presented about 8-9 days ago while admitted to this ED for unstable angina diagnose. Patient reports rash starts at the left side of her chest and wraps around to her left sided back, states pain is sharp with a pin and needle sensation. Patient denies any fever, chills, SOB, nausea, or vomiting. Chief Complaint: Chest Pain Time Seen by MD: 08:13 Primary Care Provider: STARR History of Present Illness: Nurses Notes, Medications, Allergies Allergies: Coded Allergies: NO KNOWN ALLERGIES (Unverified , 10/31/24) Home Meds Active Scripts Atorvastatin Calcium (Lipitor) 20 Mg Tab, 1 TAB PO QPM, #90 TAB 1 Refill Prov:MIMI BARBOUR MD 11/01/24 Nifedipine (Nifedipine Er) 30 Mg Tab, 60 MG PO DAILY for 30 Days, #60 TAB Prov:MIMI BARBOUR MD 11/01/24 Carvedilol (COREG) 12.5 Mg Tab, 12.5 MG PO Q12HR for 30 Days, #60 TAB Prov:MIMI BARBOUR MD 11/01/24 Aspirin (Aspir-Low) 81 Mg Tab, 81 MG PO DAILY for 30 Days, #30 TAB Prov:MIMI BARBOUR MD 11/01/24 Information Source: Patient Mode of Arrival: Ambulatory Severity: Moderate Timing: Days (8-9) Duration: Since onset Location: Chest, Trunk Mechanism: Spontaneous Onset Wound Type: Other (rash ) Immunization Status of Animal: NA History of: None Associated Signs and Symptoms: Redness, Swelling, Chest Pain, Pain Past Medical History PAST MEDICAL HISTORY: HTN Surgical History: Denies all surgeries TITLE I INSTRUCTIONAL ASSISTANT History: Denies all TITLE I INSTRUCTIONAL ASSISTANT Hx Family History Family History: Reviewed,noncontributory to illness Social History Smoker: Non-Smoker Alcohol: Denies ETOH Use Drugs: Denies Drug Use Lives In: Home Constitutional: denies: chills, diaphoresis, fatigue, fever, malaise, sweats, weakness, others EENTM: denies: blurred vision, double vision, ear bleeding, ear discharge, ear drainage, ear pain, ear ringing, eye pain, eye redness, hearing loss, mouth pain, mouth swelling, nasal discharge, nose bleeding, nose congestion, nose pain, photophobia, tearing, throat pain, throat swelling, voice changes, others Respiratory: denies: cough, hemoptysis, orthopnea, SOB at rest, shortness of breath, SOB with excertion, stridor, wheezing, others Cardiovascular: reports: chest pain; denies: dizzy spells, diaphoresis, Dyspnea on exertion, edema, irregular heart beat, left arm pain, lightheadedness, palpitations, PND, syncope, others Gastrointestinal: denies: abdomen distended, abdominal pain, blood streaked bowels, constipated, diarrhea, dysphagia, difficulty swallowing, hematemesis, melena, nausea, poor appetite, poor fluid intake, rectal bleeding, rectal pain, vomiting, others Genitourinary: denies: abnormal vagina bleeding, burning, dyspareunia, dysuria, flank pain, frequency, hematuria, incontinence, pain, , vagina discharge, urgency, others Neurological: denies: dizziness, fainting, headache, left sided numbness, left sided weakness, numbness, paresthesia, pre-existing deficit, right sided numbness, right sided weakness, seizure, speech problems, tingling, tremors, weakness, others Musculoskeletal: denies: back pain, gout, joint pain, joint swelling, muscle p ain, muscle stiffness, neck pain, others Integumetry: reports: rash; denies: bruises, change in color, change in hair/nails, dryness, laceration, lesions, lumps, wounds, others Allergic/Immunocompromised: denies: Difficulty Healing, Frequent Infections, Hives, Itching, others Hematologic/Lymphatic: denies: anemia, blood clots, easy bleeding, easy bruising, swollen glands, others Endocrine: denies: excessive hunger, excessive sweating, excessive thirst, excessive urination, flushing, intolerance to cold, intolerance to heat, u nexplained weight gain, unexplained weight loss, others Psychiatric: denies: anxiety, bipolar disorder, depression, hopeless, panic disorder, schizophrenia, sleepless, suicidal, others All Other Systems: Reviewed and Negative Physical Exam General Appearance: Moderate Distress HEENT: Normal ENT Inspection, Pharynx Normal, TMs Normal Neck: Full Range of Motion, Non-Tender, Normal, Normal Inspection Respiratory: Chest Non-Tender, Lungs Clear, No Accessory Muscle Use, No Respiratory Distress, Normal Breath Sounds Cardiovascular: No Edema, No JVD, No Murmur, No Gallop, Normal Peripheral Pulses, Regular Rate/Rhythm Breast Exam: Deferred Gastrointestinal: No Organomegaly, Non Tender, No Pulsatile Mass, Normal Bowel Sounds, Soft Genitalia: Deferred Pelvic: Deferred Rectal: Deferred Extremities: No calf tenderness, Normal capillary refill, Normal inspection, Normal range of motion, Non-tender, No pedal edema Musculoskeletal : Apperance: Normal Neurologic: Alert, implement mechanic II-XII nml as Tested, No Motor Deficits, Normal Affect, Normal Mood, No Sensory Deficits Cerebellar Function: Normal Reflexes: Normal Skin: Rash (Left side of chest) Peripheral Pulses: 3+ Radial (R), 3+ Radial (L) Lymphatic: No Adenopathy Was a procedure done? Was a procedure done?: No Differential Diagnosis (INTG) Differential Diagnosis: Cellulitis, Contact Dermatitis, Herpes Zoster/Simplex, Impetigo, Intertrigo X-Ray, Labs, Meds, VS Vital Signs Date Time Temp Pulse Resp B/P (MAP) Pulse Ox O2 Delivery O2 Flow Rate FiO2 11/16/24 08:28 98.3 71 18 197/86 (123) 98 98.3 11/16/24 08:28 71 11/16/24 08:24 74 16 97 Room Air* 0 21 11/16/24 08:13 98.1 66 16 147/79 (101) 98 11/16/24 08:01 69 Lab Test 11/16/24 09:08 11/16/24 08:27 11/16/24 08:06 Range/Units Troponin I High Sensitivity 18 19 </=34 ng/L Urine Color Light-yellow Yellow Urine Clarity Clear Clear Urine pH 6.0 5.0-9.0 Urine Specific [place] 1.009 1.001-1.035 Urine Protein Negative Negative Urine Ketones Negative Negative Urine Blood Negative Negative /uL Urine Nitrite Negative Negative Urine Bilirubin Negative Negative Urine Urobilinogen Normal Negative mg/dL Urine Leukocyte Esterase Negative Negative /uL Urine RBC 1 0 - 4 /hpf Urine WBC 2 0 - 5 /hpf Urine Squamous Epithelial Cells Few <5 /hpf Urine Bacteria None seen None Seen /hpf Urine Glucose Normal Normal mg/dL White Blood Count 7.5 4.4-10.8 10^3/uL Red Blood Count 4.18 4.0-5.20 10^6/uL Hemoglobin 13.1 12.2-16.2 g/dL Hematocrit 38.0 36.0-46.0 % Mean Corpuscular Volume 91.0 80.0-100.0 fL Mean Corpuscular Hemoglobin 31.4 28.0-32.0 pg Mean Corpuscular Hemoglobin Concent 34.6 32.0-36.0 g/dL Red Cell Distribution Width 12.9 11.8-14.3 % Platelet Count 418 140-450 10^3/uL Mean Platelet Volume 6.9 6.9-10.8 fL Neutrophils (%) (Auto) 71.1 37.0-80.0 % Lymphocytes (%) (Auto) 17.5 10.0-50.0 % Monocytes (%) (Auto) 8.1 0.0-12.0 % Eosinophils (%) (Auto) 2.5 0.0-7.0 % Basophils (%) (Auto) 0.8 0.0-2.0 % Neutrophils # (Auto) 5.3 1.6-8.6 10 ^3/uL Lymphocytes # (Auto) 1.3 0.4-5.4 10 ^3/uL Monocytes # (Auto) 0.6 0-1.3 10 ^3/uL Eosinophils # (Auto) 0.2 0-0.8 10 ^3/uL Basophils # (Auto) 0.1 0-0.2 10 ^3/uL Nucleated Red Blood Cells 0.1 % Sodium Level 137 136-145 mmol/L Potassium Level 4.6 3.5-5.1 mmol/L Chloride Level 102 98-107 mmol/L Carbon Dioxide Level 28 20-31 mmol/L Anion Gap 7 5-15 Blood Urea Nitrogen 14 9-23 mg/dL Creatinine 0.92 0.550-1.02 mg/dL Glomerular Filtration Rate Calc 61 >90 mL/min BUN/Creatinine Ratio 15.2 10.0-20.0 Serum Glucose 125 H 74-106 mg/dL Calcium Level 10.1 8.7-10.4 mg/dL Total Bilirubin 1.1 H 0.2-1.0 mg/dL Aspartate Amino Transferase (AST) 26 13-40 U/L Alanine Aminotransferase (ALT) 34 7-40 U/L Alkaline Phosphatase 71 46-116 U/L Total Protein 7.2 5.7-8.2 g/dL Albumin 4.5 3.2-4.8 g/dL Patient alert. Complaining of left-sided chest pain. Rash distribution along the left side of the chest. Vitals stable. Ambulating. WBC within normal limits. She was discharged from this hospital more than a week ago. She started having rash while in this hospital. Possible herpes zoster. Blood pressure elevated. EKG reviewed does not show any acute changes. Was given clonidine. Reviewed her previous visit. Continue cardiac monitoring. Cardiac marker within normal limits. Insists on going home. No leg swelling. Denies cardiac pain. Was given prescription of [place]. Explained to the patient. Was told to follow up with her primary care physician. Was told to come back if there is any problem. Time of 1ST Reevaluation: 08:20 Reevaluation 1ST: Improved Time of 2ND Reevaluation: 10:55 Reevaluation 2ND: Improved Patient Education/Counseling: Diagnosis, Treatment, Prognosis Family Education/Counseling: No Family Present Additional Information I reviewed the following notes from patient's past medical encounters: 10/31/24 due to unstable angina and HBP The following tests were ordered, and results were reviewed by me: Labs that include Troponin x3, EKG x3, UA, CBC, CMP, XY, EKG Additional Information was gathered from interviewing the following independent historians: None I reviewed and agreed with the following test results read by other providers: (X-Ray, CT, US) I discussed treatment and results with medical personnel Departure 1 Departure Time of Disposition: 08:31 Impression: Primary Impression: Uncontrolled hypertension Additional Impression: Herpes zoster Qualified Codes: B02.9 - Zoster without complications Disposition: 01 HOME / SELF CARE / HOMELESS Condition: Good e-Prescriptions Hydrocodone-Acetaminophen (Hydrocodone Bitartrate/AC 5-325 mg) 1 Tab Tab 1 TAB PO DAILY for 5 Days, #5 TAB Prov: KANCHAN TORRES MD 11/16/24 Discharged With: Self Critical Care Note Critical Care Time?: Yes (45 min-critical care time only) Stability Stability form required: No Heart Score Heart Score: Heart Score Response (Comments) Value History Slightly Suspicious 0 EKG Normal 0 Age >65 2 Risk Factors 1 or 2 risk factors 1 Troponin Normal limit 0 Total 3 I personally scribed for KANCHAN TORRES MD ([email or web address]) on 11/16/24 at 08:25. Electronically submitted by Prisca Moser ([place] [place] [facility]). I personally scribed for KANCHAN TORRES MD ([email or web address]) on 11/16/24 at 08:26. Electronically submitted by Prisca Moser ([facility]). KANCHAN TORRES MD Nov 16, 2024 08:25
[2024-11-16 08:32] LABS: Alanine Aminotransferase 34 U/L (7-40); Albumin 4.5 g/dL (3.2-4.8); Alkaline Phosphatase 71 U/L (46-116); Anion Gap 7 (5-15); Aspartate Aminotransferase 26 U/L (13-40); BUN/Creatinine Ratio 15.2 (10.0-20.0); Bilirubin, Total 1.1 mg/dL (0.2-1.0); Blood Urea Nitrogen 14 mg/dL (9-23); Calcium 10.1 mg/dL (8.7-10.4); Carbon Dioxide 28 mmol/L (20-31); Chloride 102 mmol/L (98-107); Potassium 4.6 mmol/L (3.5-5.1); Sodium 137 mmol/L (136-145); Total Protein 7.2 g/dL (5.7-8.2)
[2024-11-16 08:36] LABS: Urine Bacteria None Seen /hpf (None Seen)
[2024-11-16 08:45] LABS: Glucose 125 mg/dL (74-106)
[2024-11-16 09:04] LABS: Urine Blood Negative /uL (Negative); Urine Clarity Clear (Clear); Urine Color Light-Yellow (Yellow); Urine Protein, UAD Negative (Negative); Urine Specific Gravity 1.009 (1.001-1.035); Urine Squamous Epithelial Cell FEW /hpf (<5); Urine Urobilinogen Normal (Negative); Urine WBC 2 /hpf (0 - 5)
[2024-11-16] MEDS ORDERED: HYDR-4902 PO (10:55)
[2024-11-16 11:27] VITALS: BP 161/73; PULSE 66; RESP 18; TEMP 97.5; O2SAT 97
--- NOTE | 2024-11-20 14:37 | ECG ---
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
== END 2024-11-16 11:38 | disposition home or self-care (01) ==
LOC: ER 07:53
DX: B02.9 Zoster without complications (principal); I10 Essential (primary) hypertension; Z79.899 Other long term (current) drug therapy
CPT/HCPCS: 36415; 80053; 81001; 84484; 85025; 93005

== ENCOUNTER → 2025-03-13 | Outpatient (CLI) | payer OTHER ==
[~2025-03-13] MED LIST changes: +HYDR-4902 PO
[2025-03-13 10:29] LABS: Alanine Aminotransferase 28 U/L (7-40); Albumin 4.7 g/dL (3.2-4.8); Alkaline Phosphatase 67 U/L (46-116); Anion Gap 7 (5-15); Aspartate Aminotransferase 27 U/L (13-40); BUN/Creatinine Ratio 24.2 (10.0-20.0); Blood Urea Nitrogen 23 mg/dL (9-23); Carbon Dioxide 28 mmol/L (20-31); Chloride 106 mmol/L (98-107); Sodium 141 mmol/L (136-145); Total Protein 7.3 g/dL (5.7-8.2); Triglycerides 106 mg/dL (< 150)
[2025-03-13 10:31] LABS: Bilirubin, Total 1.3 mg/dL (0.2-1.0); Calcium 10.5 mg/dL (8.7-10.4); Cholesterol 215 mg/dL (< 200); Glucose 107 mg/dL (74-106); HDL Cholesterol 62 mg/dL (40-59); LDL Cholesterol 136 mg/dL (< 100); Potassium 5.3 mmol/L (3.5-5.1)
[2025-03-13 11:00] LABS: Creatinine, Urine 111.12 mg/dL (30.0-125.0)
== END | disposition home or self-care (01) ==
LOC: LAB 09:38
PROVIDERS: ATTEND Pathology Anatomic Pathology & Clinical Pathology
DX: E78.5 Hyperlipidemia, unspecified (principal); R73.9 Hyperglycemia, unspecified
CPT/HCPCS: 36415; 80053; 80061; 82043; 82570; 83036

== ENCOUNTER 2025-06-10 07:16 | Outpatient (CLI) | payer OTHER ==
[2025-06-10 08:04] LABS: Alanine Aminotransferase 17 U/L (7-40); Alkaline Phosphatase 64 U/L (46-116); Anion Gap 10 (5-15); BUN/Creatinine Ratio 21.6 (10.0-20.0); Blood Urea Nitrogen 21 mg/dL (9-23); Calcium 10.4 mg/dL (8.7-10.4); Carbon Dioxide 26 mmol/L (20-31); Chloride 104 mmol/L (98-107); Cholesterol 181 mg/dL (< 200); Creatine Kinase IFCC 84 U/L (34-145); Glucose 100 mg/dL (74-106); HDL Cholesterol 57 mg/dL (40-59); Hematocrit 40.5 % (36.0-46.0); Hemoglobin 14.1 g/dL (12.2-16.2); Mean Corpuscular Hemoglobin 31.6 pg (28.0-32.0); Mean Corpuscular Volume 90.9 fL (80.0-100.0); Nucleated Red Blood Cells % 0.1 %; Potassium 4.3 mmol/L (3.5-5.1); Sodium 140 mmol/L (136-145); Total Protein 7.2 g/dL (5.7-8.2); Triglycerides 111 mg/dL (< 150)
[2025-06-10 08:06] LABS: Albumin 4.9 g/dL (3.2-4.8); Bilirubin, Total 1.4 mg/dL (0.2-1.0)
[2025-06-10 08:48] LABS: Free T3 2.97 pg/mL (2.3-4.2)
[2025-06-10 08:49] LABS: Free T4 (Free Thyroxine) 1.17 ng/dL (0.89-1.76)
== END 2025-06-10 17:00 | disposition home or self-care (01) ==
LOC: LAB 07:16
PROVIDERS: ATTEND Internal Medicine
DX: E78.5 Hyperlipidemia, unspecified (principal); R73.9 Hyperglycemia, unspecified; Z00.00 Encounter for general adult medical examination without abnormal findings
CPT/HCPCS: 36415; 80053; 80061; 82550; 83036; 84439; 84443; 84481; 85025

== ENCOUNTER 2025-09-09 09:40 | Outpatient (CLI) | payer OTHER ==
[2025-09-09 11:10] LABS: Alanine Aminotransferase 21 U/L (7-40); Albumin 4.8 g/dL (3.2-4.8); Alkaline Phosphatase 71 U/L (46-116); Anion Gap 8 (5-15); BUN/Creatinine Ratio 17.6 (10.0-20.0); Blood Urea Nitrogen 16 mg/dL (9-23); Calcium 9.9 mg/dL (8.7-10.4); Carbon Dioxide 29 mmol/L (20-31); Chloride 103 mmol/L (98-107); Glucose 102 mg/dL (74-106); Potassium 5.0 mmol/L (3.5-5.1); Sodium 140 mmol/L (136-145); Total Protein 7.7 g/dL (5.7-8.2); Triglycerides 135 mg/dL (< 150)
[2025-09-09 11:26] LABS: Bilirubin, Total 1.5 mg/dL (0.2-1.0); Cholesterol 208 mg/dL (< 200); HDL Cholesterol 70 mg/dL (40-59)
[2025-09-09 11:32] LABS: Microalb/Creat Ratio, Urine 14.0
== END 2025-09-09 17:00 | disposition home or self-care (01) ==
LOC: LAB 09:40
PROVIDERS: ATTEND Internal Medicine
DX: E78.5 Hyperlipidemia, unspecified (principal); E03.9 Hypothyroidism, unspecified; R73.9 Hyperglycemia, unspecified
CPT/HCPCS: 36415; 80053; 80061; 82043; 82570; 83036; 84443; 84481